=== PATIENT | male | born 1960 | race Two or more races ===

== ENCOUNTER 2024-09-27 15:32 | Emergency (ER) | payer MEDICAID, SELFPAY ==
[2024-09-27 15:52] VITALS: BP 130/70; PULSE 88; RESP 18; TEMP 36.9; O2SAT 99; BMI 27.3
--- NOTE | 2024-09-27 16:01 | PD.EDMALE ---
ED Male Genitalurinary RME/HPI General Chief complaint: Urogenital-Male Stated complaint: Remove ngo Time Seen by Provider: 09/27/24 15:54 Arrival date/time: 09/27/24 15:32 RME / HPI RME / HPI Narrative: 64-year-old male patient came in for evaluation requesting for the Ngo to be removed. Patient was seen here last week, due to constipation acute urinary retention. Patient went to follow-up with PCP and was advised to come to the emergency room for removal of the Ngo. Currently patient is not having any complaints. However still having constipation problem, last bowel movement was Tuesday. Denies any abdominal pain. Denies any vomiting. Denies any fever. Related Data Previous Rx's ?Medication ?Instructions ?Recorded polyethylene glycol 3350 17 4 g PO QDAY #119 grams 09/27/24 gram/dose oral powder (Miralax) Allergies Allergy/AdvReac Type Severity Reaction Status Date / Time No Known Allergies Allergy Verified 09/27/24 15:37 Review of Systems Review of Systems Narrative Review of Systems: Review of system reviewed and within normal limits except mentioned in HPI ED Exam Narrative Physical exam: VITAL SIGNS: Reviewed. GENERAL APPEARANCE: Alert and interactive, follows commands, no acute distress, HEAD AND FACE: Non-traumatic. ENT: PERRL, pink conjunctivitis, eyelid no trauma, Mucous membrane moist. NECK: Supple, nontender, no nuchal rigidity. CHEST: No tenderness, no crepitus, no paradoxical movement, no retractions. LUNGS: Clear, well ventilated, symmetric, no rales, no wheezing, no ronchi, no stridor, good breath sounds bilaterally. HEART: Regular rate, regular rhythm, no murmur, no gallops. ABDOMEN: Soft, positive bowel sounds, nondistended, no guarding, nontender, no rebound, no masses, RECTAL: Deferred. GENITAL: Ngo catheter intact, draining well. NEUROLOGICAL: Gross motor function intact sensory function intact, Appropriate for age. MUSCULOSKELETAL: low back nontender, full range of motion. EXTREMITIES: Nontender, full range of motion. SKIN: Color pink, dry, no rash, no lacerations, no abrasions, no contusions. LYMPHATICS: Deferred. Course Quality Measures none Orders Category Date Time Status Ngo [Urinary Catheter, Remove] ONCE Care 09/27/24 16:01 Active Magnesium Citrate Liqd [Citrate of Magnesia Liqd] Med 09/27/24 16:01 Once 300 ml PO X1 ONE Vital Signs Vital signs: Vital Signs Temperature 98.5 F 09/27/24 15:52 Pulse Rate 88 09/27/24 15:52 Respiratory Rate 18 09/27/24 15:52 Blood Pressure 130/70 09/27/24 15:52 Pulse Oximetry (%) 99 09/27/24 15:52 Oxygen Delivery Method Room Air 09/27/24 15:52 Urogenital - Male MDM Narrative MDM Narrative:: 64-year-old male patient came in for evaluation requesting for the Ngo to be removed. Patient was seen here last week, due to constipation acute urinary retention. Patient went to follow-up with PCP and was advised to come to the emergency room for removal of the Ngo. Currently patient is not having any complaints. However still having constipation problem, last bowel movement was Tuesday. Denies any abdominal pain. Denies any vomiting. Denies any fever. Ngo catheter was removed without any difficulty. Patient was advised to return to emergency room if unable to void in 6 hours. Patient was also given mag citrate. Patient appears nontoxic and hemodynamically stable. Patient discharged home and instructed to follow-up with primary care provider in 24 to 48 hours. Instructed to return to the emergency department immediately if worsening of symptoms Patient data External records reviewed:: None Clinical information provided by:: none Social determinants that could affect healthcare access:: none Patient has the following chronic illnesses:: None. How is presenting disease/condition affected by chronic disease/condition?: no chronic disease Evaluation data The following diagnostics were reviewed and interpreted by me:: lab results and radiology exam(s) Lab and/or radiology exams considered but not ordered:: None Interpretation Summary: None Medications / Prescriptions Medications or Prescriptions considered but not ordered:: None Medication administrations:: None Consultations Consultation(s) initiated? (list below): No Diagnosis Urogenital Male Differential Diagnosis: other (Constipation, encounter for removal of Ngo) Most likely diagnosis given after review of the tests above:: Constipation, encounter for removal of Ngo Admission Indicated Admission indicated?: not indicated Explain why admission is indicated or not indicated:: Stable Admission Request Was there a request for admission?: No Disposition Plan Disposition Plan: Discharge Discharge Attestation Discharge Attestation: The patient was given an opportunity to ask questions and understood the discharge instructions. Discharge instructions specifically effects, indications for sooner follow up or return to the emergency department, and the expected course of current diagnosis. Patient condition: Stable Discharge Plan Plan Patient Disposition: HOME (Self Care) Disposition Comment: Stable Prescriptions/Referrals Prescriptions/Med Rec: New polyethylene glycol 3350 [Miralax] 17 gram/dose powder 4 g PO QDAY Qty: 119 0RF Problem List Clinical Impression: Constipation, Encounter for Ngo catheter removal Patient/Caregiver Discharge Instructions Discharge Activity: activity as tolerated Education Materials: Treating Constipation Additional Instructions: Thank you for the opportunity for serving you today. You are stable for discharged . You are advised to: Follow-up with your PCP in 1 to 2 days Return to ED for worsening of symptoms Increase oral fluids Take medication as prescribed Print Language: Icelandic Stand Alone Forms: Tangela Award Info., Patient Portal Info Letter PA/SAEED Supervising Physician PA/SAEED Supervising Physician: MD Prince
[2024-09-27] MEDS: MAGNESIUM CITRATE 300 ML BTL PO (16:35)
== END 2024-09-27 19:01 | disposition home or self-care (01) ==
LOC: SERX 16:50
PROVIDERS: Emergency Provider Emergency Medicine; PCP Family Medicine
DX: Z46.6 Encounter for fitting and adjustment of urinary device (principal); K59.00 Constipation, unspecified
CPT/HCPCS: 99282; A9270

== ENCOUNTER 2024-11-30 18:32 | Emergency (ER) | payer MEDICAID, SELFPAY ==
[2024-11-30 19:36] VITALS: BP 128/69; PULSE 80; RESP 18; TEMP 37; O2SAT 99; BMI 21.6
--- NOTE | 2024-11-30 19:57 | PD.EDRME ---
Rapid Medical Screening Exam [facility] Arrival date/time: 11/30/24 18:32 64M with history of DM and HTN presents to ED with BS 800 from PCP. Patient has no symptoms except increased thirst and weakness. Patient does not take insulin. Chief Complaint: General Adult/Misc Complain Vital signs: Vital Signs Temperature 98.6 F 11/30/24 19:36 Pulse Rate 80 11/30/24 19:36 Respiratory Rate 18 11/30/24 19:36 Blood Pressure 128/69 11/30/24 19:36 Pulse Oximetry (%) 99 11/30/24 19:36 Oxygen Delivery Method Room Air 11/30/24 19:36
[2024-11-30 20:45] LABS: Basophils # (Auto) 0.1 Thou/mm3 (0.0-0.2); Basophils % (Auto) 1 % (0-2.5); Eosinophils # (Auto) 0.2 Thou/mm3 (0.0-0.5); Eosinophils % (Auto) 2 % (0-10); Hematocrit 41.8 % (41.0-53.0); Hemoglobin 14.9 g/dL (13.5-16.0); Immature Granulocytes % (Auto) 0 % (0-0); Immature Granulocytes Auto 0.02 Thou/mm3 (0.00-0.00); Lymphocytes # (Auto) 2.7 Thou/mm3 (1.0-4.8); Lymphocytes % (Auto) 31 % (10-50); Mean Corpuscular HGB Conc 35.6 g/dl (31.0-37.0); Mean Corpuscular Volume 90 fL (80-100); Monocytes # (Auto) 0.6 Thou/mm3 (0.0-0.8); Monocytes % (Auto) 7 % (0-12); Neutrophils % (Auto) 59 % (37-80); Nucleated Red Blood Cell % 0 /100 WBC (0); Platelet Count 260 Thou/mm3 (140-440); RDW Standard Deviation 38.8 fL (35.1-43.9); Red Blood Count 4.65 Miln/mm3 (4.50-5.90); White Blood Count 8.6 Thou/mm3 (3.8-10.6)
[2024-11-30 21:19] LABS: Alanine Aminotransferase 20 U/L (10-49); Albumin, Serum 4.1 gm/dL (3.4-4.8); Albumin/Globulin Ratio 1.2 (1.2-2.2); Alkaline Phosphatase 230 U/L (46-116); Anion Gap 11 (7-16); Aspartate Amino Transferase 40 U/L (0-34); BUN/Creatinine Ratio 15 Ratio (12-20); Bilirubin,Total 0.7 mg/dL (0.3-1.2); Blood Urea Nitrogen 16 mg/dL (9-23); Carbon Dioxide 23.4 mMol/L (20.0-31.0); Chloride 98 mMol/L (98-107); Creatinine (Component) 1.1 mg/dL (0.6-1.3); Estimated Creatinine Clearance 54.8 mL/min (>60); Globulin 3.5 gm/dL (2.3-3.5); Osmolality,Calculated 291 (275-295); Potassium 5.6 mMol/L (3.4-5.1); Sodium 132 mMol/L (136-145); Total Protein 7.6 gm/dL (5.7-8.2); eGFR > 60 See Note
[2024-11-30 21:24] LABS: Glucose 564 mg/dL (74-106)
[2024-11-30 21:25] LABS: Collection Type, Urine Clean Catch; Squamous Epithelial Cell,Urine 0 /hpf (0-5)
[2024-11-30 21:27] LABS: Beta Hydroxybutyrate 1.2 mmol/L (<0.6)
[2024-11-30 21:35] LABS: Bacteria,Urine Rare; Bilirubin,Urine Negative (Negative); Blood,Urine Negative (Negative); Clarity,Urine Clear (Clear/Hazy); Color,Urine Colorless (Lt Yel-Yel); Glucose, Urine 4+ (Negative); Ketones,Urine 1+ (Negative); Leukocyte Esterase,Urine Positive (Negative); Nitrite,Urine Negative (Negative); PH,Urine 5.5 (5.0-7.0); Protein,Urine Negative (Neg - Trace); RBC,Urine 6 /hpf (0-3); Specific Gravity,Urine 1.032 (1.001-1.035); Urobilinogen,Urine Negative mg/dL (0.0-1.0); WBC,Urine 12 /hpf (0-5)
[2024-11-30 22:07] VITALS: BP 151/80; PULSE 67; RESP 16; TEMP 36.7; O2SAT 97
--- NOTE | 2024-11-30 22:59 | EDNOTE_ITS ---
ED General RME/HPI General Chief complaint: General Adult/Misc Complain Stated complaint: Abnormal labs (sent by PCP, bg 800) Time Seen by Provider: 11/30/24 22:54 Arrival date/time: 11/30/24 18:32 RME / HPI RME / HPI narrative: 64M with history of DM and HTN presents to ED with BS 800 from PCP. Patient has no symptoms except increased thirst and weakness. Patient does not take insulin. Patient is taking his glyburide with good compliance. Denies any other complaints or issues at this time. Related Data Previous Rx's ?Medication ?Instructions ?Recorded polyethylene glycol 3350 17 4 g PO QDAY #119 grams 02/13 gram/dose oral powder (Miralax) cefuroxime axetil 500 mg tablet 500 mg PO BID #14 tabs 11/30/24 Allergies Allergy/AdvReac Type Severity Reaction Status Date / Time No Known Allergies Allergy Verified 11/30/24 18:35 Review of Systems Review of Systems Narrative Review of Systems: Review of system reviewed and within normal limits except mentioned in HPI ED Exam Narrative Physical exam: VITAL SIGNS: Reviewed. GENERAL APPEARANCE: Alert and interactive, follows commands, no acute distress, HEAD AND FACE: Non-traumatic. ENT: PERRL, pink conjunctivitis, eyelid no trauma, Mucous membrane moist. NECK: Supple, nontender, no nuchal rigidity. CHEST: No tenderness, no crepitus, no paradoxical movement, no retractions. LUNGS: Clear, well ventilated, symmetric, no rales, no wheezing, no ronchi, no stridor, good breath sounds bilaterally. HEART: Regular rate, regular rhythm, no murmur, no gallops. ABDOMEN: Soft, positive bowel sounds, nondistended, no guarding, nontender, no rebound, no masses, RECTAL: Deferred. GENITAL: Deferred. NEUROLOGICAL: Gross motor function intact sensory function intact, Appropriate for age. MUSCULOSKELETAL: low back nontender, full range of motion. EXTREMITIES: Nontender, full range of motion. SKIN: Color pink, dry, no rash, no lacerations, no abrasions, no contusions. LYMPHATICS: Deferred. Course Quality Measures none Orders Category Date Time Status Insert IV NOW Care 11/30/24 22:52 Completed Beta Hydroxybutyrate Stat Lab 11/30/24 20:33 Completed CBC Stat Lab 11/30/24 20:33 Completed CMP [Comprehensive Metabolic Panel] Stat Lab 11/30/24 20:33 Completed Urinalysis Stat Lab 11/30/24 21:08 Completed Insulin Regular Med 11/30/24 22:55 Discontinued 5 unit IV X1 ONE Sodium Chloride 0.9% 1000 ml [Ns] 1,000 ml Med 11/30/24 22:55 Discontinued IV 999 mls/hr Sodium Chloride 0.9% 1000 ml [Ns] 1,000 ml Med 11/30/24 22:57 Discontinued IV 999 mls/hr cefTRIAXone/D5w 1gm IV premix [Rocephin/D5w 1gm IV Med 11/30/24 23:01 Discontinued premix] 1 g in 50 ml IV X1 Vital Signs Vital signs: Vital Signs Temperature 98.6 F 11/30/24 19:36 Pulse Rate 80 11/30/24 19:36 Respiratory Rate 18 11/30/24 19:36 Blood Pressure 128/69 11/30/24 19:36 Pulse Oximetry (%) 99 11/30/24 19:36 Oxygen Delivery Method Room Air 11/30/24 19:36 [facility] Patient data External records reviewed:: None Clinical information provided by:: patient and family Social determinants that could affect healthcare access:: none Patient has the following chronic illnesses:: Diabetes mellitus How is presenting disease/condition affected by chronic disease/condition?: e xacerbated by Evaluation data The following diagnostics were reviewed and interpreted by me:: lab results and radiology exam(s) Lab and/or radiology exams considered but not ordered:: None Interpretation Summary: See results in [facility] Medications Medications considered but not ordered:: None Medication administrations:: Medication Administration History Discontinued Medications Sodium Chloride (Ns) 1,000 mls @ 999 mls/hr IV .Q1H1M ONE Stop: 11/30/24 23:55 Last Infusion: 12/01/24 00:05 Dose: Infused Documented By: Admin: 11/30/24 23:01 Dose: 999 mls/hr Documented By: KOTA Sodium Chloride (Ns) 1,000 mls @ 999 mls/hr IV .Q1H1M ONE Stop: 11/30/24 23:57 Last Infusion: 12/01/24 00:05 Dose: Infused Documented By: Admin: 11/30/24 23:01 Dose: 999 mls/hr Documented By: KOTA Ceftriaxone Sodium/Dextrose (Rocephin/D5w 1gm Iv Premix) 1 g in 50 mls @ 100 mls/hr IV X1 ONE Stop: 11/30/24 23:30 Last Infusion: 12/01/24 00:04 Dose: Infused Documented By: Admin: 11/30/24 23:27 Dose: 100 mls/hr Documented By: KOTA Insulin Human Regular (Insulin Hum Regular 1 Unit/0.01 Ml (Per Unit)) 5 unit IV X1 ONE Stop: 11/30/24 22:56 Last Admin: 11/30/24 23:01 Dose: 5 unit Documented By: KOTA Co-signed By: EDGAR IV insulin, ceftriaxone IV, and 2 L IV NS Consultations Consultation(s) initiated? (list below): No Diagnosis Differential Diagnosis ED Complaint MDM: DKA, hyperglycemia poorly controlled diabetes mellitus UTI Most likely diagnosis given after review of the tests above:: Hyperglycemia, poorly controlled diabetes mellitus, UTI Admission Indicated Admission indicated?: not indicated Explain why admission is indicated or not indicated:: Stable for discharge Admission Request Was there a request for admission?: No Disposition Plan Disposition Plan: Discharge Discharge Attestation Discharge Attestation: The patient and all family members were given an opportunity to ask questions and understood the discharge instructions. Discharge instructions specifically effects, indications for sooner follow up or return to the emergency department, and the expected course of current diagnosis. Patient condition: Stable Medical Decision Making MDM Narrative MDM Narrative: 64M with history of DM and HTN presents to ED with BS 800 from PCP. Patient has no symptoms except increased thirst and weakness. Patient does not take insulin. Patient is taking his glyburide with good compliance. Denies any other complaints or issues at this time. Patient's CBC came back unremarkable. Potassium 5.6, sodium of 132. Patient glucose today was noted to be 564. With no sign of diabetic ketoacidosis. Urinalysis positive for UTI Patient received regular insulin 5 units IV, and 2 L of IV NS. Was also given IV ceftriaxone. Blood sugar prior to discharge was noted to be 289 Differential Diagnosis Differential Diagnosis: DKA, hyperglycemia poorly controlled diabetes mellitus UTI Lab Data 11/30/24 20:33 11/30/24 20:33 Labs: Lab Results 11/30/24 11/30/24 Range/Units 20:33 21:08 WBC 8.6 (3.8-10.6) Thou/mm3 RBC 4.65 (4.50-5.90) Miln/mm3 Hgb 14.9 (13.5-16.0) g/dL Hct 41.8 (41.0-53.0) % MCV 90 (80-100) fL MCH 32.0 (25.0-35.0) pg MCHC 35.6 (31.0-37.0) g/dl RDW Std Deviation 38.8 (35.1-43.9) fL Plt Count 260 (140-440) Thou/mm3 Neut % (Auto) 59 (37-80) % Lymph % (Auto) 31 (10-50) % Boundary % (Auto) 7 (0-12) % Eos % (Auto) 2 (0-10) % Baso % (Auto) 1 (0-2.5) % Neut # (Auto) 5.0 (1.8-7.7) Thou/mm3 Lymph # (Auto) 2.7 (1.0-4.8) Thou/mm3 Boundary # (Auto) 0.6 (0.0-0.8) Thou/mm3 Eos # (Auto) 0.2 (0.0-0.5) Thou/mm3 Baso # (Auto) 0.1 (0.0-0.2) Thou/mm3 Immature Gran # (Auto) 0.02 H (0.00-0.00) Thou/mm3 Absolute Nucleated RBC 0.00 (0.00-0.00) Thou/mm3 Immature Gran % 0 (0-0) % Nucleated RBC % 0 (0) /100 WBC Sodium 132 L (136-145) mMol/L Potassium 5.6 H (3.4-5.1) mMol/L Chloride 98 (98-107) mMol/L Carbon Dioxide 23.4 (20.0-31.0) mMol/L Anion Gap 11 (7-16) BUN 16 (9-23) mg/dL Creatinine 1.1 (0.6-1.3) mg/dL Estim Creat Clear Calc 54.8 L (>60) mL/min eGFR > 60 (60 - ) See Note BUN/Creatinine Ratio 15 (12-20) Ratio Glucose 564 H* (74-106) mg/dL Estimated Ave Glu mg/dL Cancelled Hemoglobin A1c Cancelled Calculated Osmolality 291 (275-295) Calcium 10.0 (8.3-10.6) mg/dL Corrected Calcium 10.0 (8.5-10.1) mg/dL Total Bilirubin 0.7 (0.3-1.2) mg/dL AST 40 H (0-34) U/L ALT 20 (10-49) U/L Alkaline Phosphatase 230 H (46-116) U/L Total Protein 7.6 (5.7-8.2) gm/dL Albumin 4.1 (3.4-4.8) gm/dL Globulin 3.5 (2.3-3.5) gm/dL Albumin/Globulin Ratio 1.2 (1.2-2.2) Beta-Hydroxybutyrate/Acetoacetate 1.2 H (<0.6) mmol/L Ur Collection Type Clean Catch Urine Color Colorless A (Lt Yel-Yel) Urine Clarity Clear (Clear/Hazy) Urine pH 5.5 (5.0-7.0) Ur Specific [place] 1.032 (1.001-1.035) Urine Protein Negative (Neg - Trace) Urine Glucose (UA) 4+ A (Negative) Urine Ketones 1+ A (Negative) Urine Blood Negative (Negative) Urine Nitrite Negative (Negative) Urine Bilirubin Negative (Negative) Urine Urobilinogen (Auto) Negative (0.0-1.0) mg/dL Ur Leukocyte Esterase Positive (Negative) Urine RBC 6 H (0-3) /hpf Urine WBC 12 H (0-5) /hpf Ur Squamous Epith Cells 0 (0-5) /hpf Urine Bacteria Rare (None) Discharge Plan Plan Patient Disposition: HOME (Self Care) Disposition Comment: Stable Prescriptions/Referrals Prescriptions/Med Rec: New cefuroxime axetil 500 mg tablet 500 mg PO BID Qty: 14 0RF No Action polyethylene glycol 3350 [Miralax] 17 gram/dose powder 4 g PO QDAY Qty: 119 0RF Referrals: Tahir Garcia MD [Primary Care Provider] - In 1 week Problem List Clinical Impression: UTI (urinary tract infection), Hyperglycemia, Poorly controlled diabetes mellitus Patient/Caregiver Discharge Instructions Discharge Activity: activity as tolerated Education Materials: Diabetes: Activity Tips, Diabetes Carbs Fats Protein Additional Instructions: Thank you for the opportunity for serving you today. You are stable for discharged . You are advised to: Follow-up with your PCP in 1 to 2 days Return to ED for worsening of symptoms Increase oral fluids Take medication as prescribed Print Language: Colombian Stand Alone Forms: Tangela Award Info., Patient Portal Info Letter PA/SAEED Supervising Physician ALONZO/SAEED Supervising Physician: MD Prince
[2024-11-30] MEDS: INSULIN HUM REGULAR 1 UNIT/0.01 ML (PER UNIT) 5 UNIT IV (23:01)
[2024-11-30] MEDS: SODIUM CHLORIDE 0.9% 1000 ML 1,000 ML 999 ML IV ×2 (23:01)
[2024-11-30] MEDS: cefTRIAXone/D5w 1gm IV premix 1 G/50 ML BAG IV (23:27)
[2024-12-01 00:34] VITALS: RESP 18
[2024-12-03 10:29] LABS: Misc Send Out* See Sep Rpt
== END 2024-12-01 00:35 | disposition home or self-care (01) ==
PROVIDERS: Physician Assistant; Emergency Provider Emergency Medicine; PCP Family Medicine
DX: E11.65 Type 2 diabetes mellitus with hyperglycemia (principal); N39.0 Urinary tract infection, site not specified; I10 Essential (primary) hypertension; Z79.84 Long term (current) use of oral hypoglycemic drugs
CPT/HCPCS: 36415; 80053; 81001; 81162; 82010; 83036; 85025; 96365; 99284; J0696; J1815; J7030